=== PATIENT | female | born 1950 | race Caucasian/White ===

== ENCOUNTER 2019-03-02 07:25 | Day surgery (SDC) | payer MEDICARE, OTHER ==
[~2019-03-02 07:25] MED LIST: Lactated Ringers 1,000 ML IV ONE
[2019-03-02] MEDS ORDERED: TETRACAINE 0.5% STERI-UNIT SOL OP ONE ×2 (07:30)
[2019-03-02] MEDS ORDERED: Lactated Ringers 1,000 ML IV SCH (07:30)
[2019-03-02] MEDS ORDERED: Ak-Dilate OPHTHALMIC*** 1.065 ML, Cyclogyl 1% OPHTH SOL 5 ML 1.065 ML, GATIFLOXACIN 0.5... OP ONE ×4 (07:30)
[2019-03-02] MEDS ORDERED: DIPRIVAN 200 MG/20 ML IV ONE (08:57)
[2019-03-02] MEDS ORDERED: BETADINE 5% OPHTHALMIC 30 ML OP ONE (09:00)
[2019-03-02] MEDS ORDERED: Epinephrine Preservative Free 1 MG/ML INTRAOP ONE (09:00)
[2019-03-02] MEDS ORDERED: LIDOCAINE HCL 1% AMPUL 5 ML IJ ONE (09:00)
[2019-03-02] MEDS ORDERED: BSS 500 ML, Fortaz/Tazicef 1 GM** 0.2 G IO ONE ×2 (09:00)
[2019-03-02] MEDS ORDERED: Zofran 4 MG/2 ML VIAL IV PRN (09:30)
[2019-03-02] MEDS ORDERED: ACETAZOLAMIDE 250 MG TABLET PO ONE (09:30)
[2019-03-02 10:07] VITALS: BP 148/78; PULSE 50; O2SAT 98
--- NOTE | 2019-03-03 07:50 | OP ---
DATE/TIME OF OPERATION: 03/02/2019 0858 TIME DICTATED: 1437 PREOPERATIVE DIAGNOSIS: Senile cataract of left eye. POSTOPERATIVE DIAGNOSIS: Senile cataract of left eye. SURGEON: India Salinas MD CAT HOOKER: None. OPERATION: Cataract extraction of left eye with an intraocular lens implant. STANDARD __X__ COMPLEX ANESTHESIA: MAC. ___X__ Monitored anesthesia care in combination with topical and intra-cameral anesthesia (because of the established specific risk of reflux, arrhythmias, or an anxiety attack associated with ocular manipulation as well as difficulty of the heavy equipment field mechanic to manage such potentially catastrophic events while simultaneously attempting to complete the surgical procedure, it was deemed necessary for the patient's safety to have an anesthesiologist or a nurse retread supervisor present during the procedure whenever possible. The anesthesiologist or the nurse retread supervisor was utilized to monitor and regulate the intravenous sedation of the patient, so the patient was cooperative, relaxed, and comfortable). Topical anesthesia using Tetracaine eye drops together with intra cameral anesthesia using Lidocaine 1% MPF. The nurse was utilized to monitor the patient. ANESTHESIA PROVIDER: Gigi Khanna CRNA. COMPLICATIONS: None. BLOOD LOSS: None. INDICATIONS: The patient is undergoing cataract surgery in the hopes of eliminating the visual complaints and difficulty. PROCEDURE: After arriving at the facility's outpatient surgery area, an IV was started; the patient was given 5 mg of p.o. Versed. (If an anesthesia provider was not monitoring the patient) The patient was then given topical anesthetic Tetracaine eye drops. A cotton pellet was soaked into a solution of a combination of Zymaxid 0.5%, Placido-Synephrine 2.5% and Ocufen (other drops might have been substituted referenced in the patient's record). The pellet was inserted by the RN into the lower conjunctival cul-de-sac with a sterile forceps and left for 20 minutes. The pellet was then removed by the RN with a sterile forceps before taking the patient to the operating room. The preoperative area nurse identified the patient and marked the correct eye to be operated on. I identified the correct eye to be operated on and marked it appropriately in the outpatient surgery area. The patient was then taken into the operating room. Tetracaine eye drops were installed again in the correct eye. The eyelids and the lashes and the lid margins were scrubbed with Betadine solution. One drop of the diluted Betadine solution was placed in the conjunctival cul-de-sac for 45 seconds and then was irrigated. A drop of Tetracaine Gel was placed in the conjunctival cul-de-sac. The patient's forehead was taped to secure it during the procedure. The patient was monitored. The patient was then draped in the usual way for this procedure. An eye speculum was used to separate the eyelids. The eye was then fixated and a temporal 2.5 mm incision was made in the clear cornea temporally at the limbus. Through the incision, 0.25 cc of 1% non-preserved lidocaine was injected into the anterior chamber for intracameral anesthesia. The anterior chamber was then filled with viscoelastic. The pupil was small. I felt that it would be safer to mechanically dilate the pupil. A Malyugin ring was used at this point which dilated the pupil. That was removed at the end of the procedure prior to aspiration of the viscoelastic from the anterior chamber and posterior to the intraocular lens implant. The cataract had a great amount of cortical changes. That rendered seeing the anterior capsule difficult for a safe performance of an anterior capsulotomy. I injected an air bubble into the anterior chamber. I then injected 1 ML of vision blue solution into the anterior chamber. The vision blue solution was irrigated from the anterior chamber after 30 seconds. The anterior capsule was stained which facilitated performing the anterior capsulotomy safely. After that was completed, a cystotome was introduced into the anterior chamber and a round anterior capsulotomy was performed. The capsule was removed by a forceps. Hydrodissection was next carried utilizing a 25-gauge cannula and balanced salt solution to delineate the cortical material from the capsule and the nucleus from the cortical material. The nucleus was rotated freely into the capsular bag with no difficulty. The phaco tip of the [employer] Phacoemulsifier was introduced into the anterior chamber and two grooves were made into the nucleus 90 degrees apart. Using two spatulas resulted into the nucleus being fractured into four quadrants. The phaco tip was then used to remove each quadrant of the nucleus. Viscoelastic was used during this process to protect the corneal endothelium. Once the entire nucleus was removed, the phaco tip then was removed and the irrigation tip was introduced into the eye and the cortex was removed. The posterior capsule was polished. It was noticed that there was a tear into the posterior capsule with few vitreous strands into the pupil plan. An anterior vitrectomy was performed. A 17.50 diopter, SN60WF, posterior chamber lens implant, was inspected and found to be grossly normal. The implant was inserted into the implant injector cartridge; Viscoelastic again was introduced into the anterior chamber, which filled the capsular bag. The implant injector's cartridge tip was placed at the limbal wound and the posterior chamber implant was released into the capsular bag and rotated appropriately. The implant was found to be into the capsular bag and it was centered. 0.2 ml of Tri-Moxi was introduced via 27 gauge cannula into the vitreous cavity through the ciliary processes. Viscoelastic was aspirated from the anterior chamber and posterior to the intraocular lens implant from the capsular bag using the irrigating tip. The anterior chamber was irrigated and filled with 5 cc antibiotic solution (500 cc of BSS plus 2 ml of Fortaz 100 mg/ml) ( if patient was not allergic to the medication). The lips of the corneal incision were hydrated using BSS solution. The anterior chamber was checked and found to be water tight. ___X__ One drop each of antibiotic, steroid and NSAID drops (refer to chart for drops used) were placed in the conjunctival cul-de-sac of the operated eye. Patient tolerated the procedure quite well and left the operating room in satisfactory condition. DISCHARGE SUMMARY: The patient was released in stable condition. The patient and those with the patient were given an instruction sheet as of how to care for the eye after surgery as well as counseling on any abnormal laboratory studies by the postoperative RN. The patient was also given an appointment card for follow-up in the office and is to call immediately for any difficulties including but not limited to pain in the eye, decreased vision, discharge from the eye, headache and or fever. DISCHARGE DIAGNOSIS: Pseudophakia of left eye.
== END 2019-03-02 10:10 | disposition home or self-care (01) ==
LOC: SDC 07:25
PROVIDERS: ATTEND Ophthalmology
DX: H25.812 Combined forms of age-related cataract, left eye (principal); H04.129 Dry eye syndrome of unspecified lacrimal gland; I10 Essential (primary) hypertension; J45.909 Unspecified asthma, uncomplicated; Z79.899 Other long term (current) drug therapy
CPT/HCPCS: C1780; J0171; J2704; A9270-GY

== ENCOUNTER 2019-04-06 08:19 | Day surgery (SDC) | payer MEDICARE, OTHER ==
[~2019-04-06 08:19] MED LIST changes: +Ak-Dilate OPHTHALMIC*** 1.065 ML, Cyclogyl 1% OPHTH SOL 5 ML 1.065 ML, GATIFLOXACIN 0.5... OP ONE; +Lactated Ringers 1,000 ML IV SCH; +TETRACAINE 0.5% STERI-UNIT SOL OP ONE
[2019-04-06] MEDS ORDERED: Epinephrine Preservative Free 1 MG/ML INTRAOP ONE (10:00)
[2019-04-06] MEDS ORDERED: BSS 500 ML, Fortaz/Tazicef 1 GM** 0.2 G IO ONE ×2 (10:00)
[2019-04-06] MEDS ORDERED: LIDOCAINE HCL 1% AMPUL 5 ML IJ ONE (10:00)
[2019-04-06] MEDS ORDERED: BETADINE 5% OPHTHALMIC 30 ML OP ONE (10:00)
[2019-04-06] MEDS ORDERED: Zofran 4 MG/2 ML VIAL IV PRN (10:00)
[2019-04-06] MEDS ORDERED: ACETAZOLAMIDE 250 MG TABLET PO ONE (10:00)
[2019-04-06] MEDS ORDERED: DIPRIVAN 200 MG/20 ML IV ONE (10:33)
[2019-04-06 11:38] VITALS: BP 130/54; PULSE 61; O2SAT 98
--- NOTE | 2019-04-07 08:48 | OP ---
DATE/TIME OF OPERATION: 04/06/2019 1030 TIME DICTATED: 1302 PREOPERATIVE DIAGNOSIS: Senile cataract of right eye. POSTOPERATIVE DIAGNOSIS: Senile cataract of right eye. SURGEON: India Salinas MD IT DIRECTOR: None. OPERATION: Cataract extraction of right eye with an intraocular lens implant. STANDARD __X__ COMPLEX ANESTHESIA: MAC. ___X__ Monitored anesthesia care in combination with topical and intra-cameral anesthesia (because of the established specific risk of reflux, arrhythmias, or an anxiety attack associated with ocular manipulation as well as difficulty of the business systems manager to manage such potentially catastrophic events while simultaneously attempting to complete the surgical procedure, it was deemed necessary for the patient's safety to have an anesthesiologist or a nurse manager furniture present during the procedure whenever possible. The anesthesiologist or the nurse manager furniture was utilized to monitor and regulate the intravenous sedation of the patient, so the patient was cooperative, relaxed, and comfortable). Topical anesthesia using Tetracaine eye drops together with intra cameral anesthesia using Lidocaine 1% MPF. The nurse was utilized to monitor the patient. ANESTHESIA PROVIDER: Rosendo Raymond CRNA. COMPLICATIONS: None. BLOOD LOSS: None. INDICATIONS: The patient is undergoing cataract surgery in the hopes of eliminating the visual complaints and difficulty. PROCEDURE: After arriving at the facility's outpatient surgery area, an IV was started; the patient was given 5 mg of p.o. Versed. (If an anesthesia provider was not monitoring the patient) The patient was then given topical anesthetic Tetracaine eye drops. A cotton pellet was soaked into a solution of a combination of Zymaxid 0.5%, Placido-Synephrine 2.5% and Ocufen (other drops might have been substituted referenced in the patient's record). The pellet was inserted by the RN into the lower conjunctival cul-de-sac with a sterile forceps and left for 20 minutes. The pellet was then removed by the RN with a sterile forceps before taking the patient to the operating room. The preoperative area nurse identified the patient and marked the correct eye to be operated on. I identified the correct eye to be operated on and marked it appropriately in the outpatient surgery area. The patient was then taken into the operating room. Tetracaine eye drops were installed again in the correct eye. The eyelids and the lashes and the lid margins were scrubbed with Betadine solution. One drop of the diluted Betadine solution was placed in the conjunctival cul-de-sac for 45 seconds and then was irrigated. A drop of Tetracaine Gel was placed in the conjunctival cul-de-sac. The patient's forehead was taped to secure it during the procedure. The patient was monitored. The patient was then draped in the usual way for this procedure. An eye speculum was used to separate the eyelids. The eye was then fixated and a temporal 2.5 mm incision was made in the clear cornea temporally at the limbus. Through the incision, 0.25 cc of 1% non-preserved lidocaine was injected into the anterior chamber for intracameral anesthesia. The anterior chamber was then filled with viscoelastic. The pupil was small. I felt that it would be safer to mechanically dilate the pupil. A Malyugin ring was used at this point which dilated the pupil. That was removed at the end of the procedure prior to aspiration of the viscoelastic from the anterior chamber and posterior to the intraocular lens implant. The cataract had a great amount of cortical changes. That rendered seeing the anterior capsule difficult for a safe performance of an anterior capsulotomy. I injected an air bubble into the anterior chamber. I then injected 1 ML of vision blue solution into the anterior chamber. The vision blue solution was irrigated from the anterior chamber after 30 seconds. The anterior capsule was stained which facilitated performing the anterior capsulotomy safely. After that was completed, a cystotome was introduced into the anterior chamber and a round anterior capsulotomy was performed. The capsule was removed by a forceps. Hydrodissection was next carried utilizing a 25-gauge cannula and balanced salt solution to delineate the cortical material from the capsule and the nucleus from the cortical material. The nucleus was rotated freely into the capsular bag with no difficulty. The phaco tip of the [employer] Phacoemulsifier was introduced into the anterior chamber and two grooves were made into the nucleus 90 degrees apart. Using two spatulas resulted into the nucleus being fractured into four quadrants. The phaco tip was then used to remove each quadrant of the nucleus. Viscoelastic was used during this process to protect the corneal endothelium. Once the entire nucleus was removed, the phaco tip then was removed and the irrigation tip was introduced into the eye and the cortex was removed. The posterior capsule was polished. It was noticed that there was a tear into the posterior capsule with few vitreous strands into the pupil plan. An anterior vitrectomy was performed. A 16.50 diopter, SN60WF, posterior chamber lens implant, was inspected and found to be grossly normal. The implant was inserted into the implant injector cartridge; Viscoelastic again was introduced into the anterior chamber, which filled the capsular bag. The implant injector's cartridge tip was placed at the limbal wound and the posterior chamber implant was released into the capsular bag and rotated appropriately. The implant was found to be into the capsular bag and it was centered. 0.2 ml of Tri-Moxi was introduced via 27 gauge cannula into the vitreous cavity through the ciliary processes. Viscoelastic was aspirated from the anterior chamber and posterior to the intraocular lens implant from the capsular bag using the irrigating tip. The anterior chamber was irrigated and filled with 5 cc antibiotic solution (500 cc of BSS plus 2 ml of Fortaz 100 mg/ml) ( if patient was not allergic to the medication). The lips of the corneal incision were hydrated using BSS solution. The anterior chamber was checked and found to be water tight. ___X___ One drop each of antibiotic, steroid and NSAID drops (refer to chart for drops used) were placed in the conjunctival cul-de-sac of the operated eye. Patient tolerated the procedure quite well and left the operating room in satisfactory condition. DISCHARGE SUMMARY: The patient was released in stable condition. The patient and those with the patient were given an instruction sheet as of how to care for the eye after surgery as well as counseling on any abnormal laboratory studies by the postoperative RN. The patient was also given an appointment card for follow-up in the office and is to call immediately for any difficulties including but not limited to pain in the eye, decreased vision, discharge from the eye, headache and or fever. DISCHARGE DIAGNOSIS: Pseudophakia of right eye.
== END 2019-04-06 11:45 | disposition home or self-care (01) ==
LOC: SDC 08:19
PROVIDERS: ATTEND Ophthalmology
DX: H25.811 Combined forms of age-related cataract, right eye (principal); I10 Essential (primary) hypertension; J45.909 Unspecified asthma, uncomplicated; Z79.899 Other long term (current) drug therapy
CPT/HCPCS: C1780; J0171; J2704; A9270-GY

== ENCOUNTER 2020-07-02 17:28 | Emergency (ER) | payer MEDICARE ==
[2020-07-02 17:43] VITALS: O2SAT 97
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
[2020-07-02 18:43] VITALS: BP 135/85; PULSE 89
--- NOTE | 2020-07-03 09:13 | XRAY ---
Indication: Pain following fall. Comparison: None 3 view left shoulder demonstrates mild osteopenia and moderate AC degenerative arthropathy. No other bony, articular, or soft tissue abnormalities.
== END 2020-07-02 19:29 ==
LOC: ED 17:28
DX: M25.512 Pain in left shoulder (principal); S49.82XA Other specified injuries of left shoulder and upper arm, initial encounter; W18.39XA Other fall on same level, initial encounter; I10 Essential (primary) hypertension; Z91.81 History of falling; Z79.899 Other long term (current) drug therapy
CPT/HCPCS: 73030; 99283

== ENCOUNTER 2022-07-19 18:59 | Emergency (ER) | payer MEDICARE ==
[2022-07-19] MEDS ORDERED: Adacel Vial IM ONE ×2 (19:50→19:55)
[2022-07-19 20:06] VITALS: BP 111/69; PULSE 70; O2SAT 96
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
--- NOTE | 2022-07-19 21:11 | XRAY ---
Indication: Left supraorbital contusion and headache following fall. Multiple contiguous axial images obtained through the head without contrast. Comparison: None Age appropriate global atrophy and minimal periventricular degenerative micro-ischemia. No acute intracranial hemorrhage, abnormal extra-axial fluid collection, or mass effect. Fourth ventricle is midline without hydrocephalus. Gaffney-white matter differentiation preserved. Bony calvarium intact. Visualized paranasal sinuses and mastoid air cells are clear. Impression: Nonacute senile brain.
--- NOTE | 2022-07-19 21:13 | XRAY ---
Indication: Left supraorbital contusion and headache following fall. Multiple contiguous axial images obtained through the facial bones. Sagittal and coronal reformatted images obtained. Comparison: None Multiple bilateral dental amalgams produces extreme beam artifact limiting these levels. Elsewhere no acute fracture, suspicious bone lesions, or osseous destructive process. Old bilateral nasal bone fractures. Orbits including roof, jaime, and floors intact. Paranasal sinuses and nasal passages are clear. Minimal nasal septal deviation to the right. Visualized cervical spine intact with mild C4-C5 degenerative changes. Visualized noncontrasted soft tissues are unremarkable. Impression: 1. Extreme beam artifact from dental amalgams. 2. Old nasal bone fractures, minimal nasal septal deviation, and mild C4-C5 degenerative changes. 3. Remaining CT facial bones negative
--- NOTE | 2022-07-19 21:15 | XRAY ---
Indication: Pain following fall. Comparison: None 3 view left elbow demonstrates nondisplaced lateral radial head fracture with intra-articular extension and small effusion. No other bony, articular, or soft tissue abnormalities.
[2022-07-19] MEDS ORDERED: NORCO 5/325 MG PO ONE ×2 (21:49→22:20)
[2022-07-19] MEDS ORDERED: NORCO 5/325 MG ONE ×2 (21:54→22:22)
== END 2022-07-19 22:48 | disposition home or self-care (01) ==
LOC: ED 18:59
DX: S52.122A Displaced fracture of head of left radius, initial encounter for closed fracture (principal); S09.90XA Unspecified injury of head, initial encounter; S01.81XA Laceration without foreign body of other part of head, initial encounter; W10.9XXA Fall (on) (from) unspecified stairs and steps, initial encounter; Y92.007 Garden or yard of unspecified non-institutional (private) residence as the place of occurrence of the external cause; R51.9 Headache, unspecified; I10 Essential (primary) hypertension; Z79.891 Long term (current) use of opiate analgesic; Z79.899 Other long term (current) drug therapy
CPT/HCPCS: 12011; 29125; 70450; 70486; 73080; 90471; 90715; 99284; A9270-GY

== ENCOUNTER 2024-06-09 10:03 | Emergency (ER) | payer MEDICARE ==
[2024-06-09 10:19] VITALS: TEMP 97
[2024-06-09] MEDS ORDERED: NEOSYNEPHRINE 0.5% NASAL SPRAY/DROPS ONE (10:25)
[2024-06-09] MEDS ORDERED: TRANEXAMIC ACID 1000 MG/10 ML ONE (10:25)
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
[2024-06-09 12:18] VITALS: BP 142/81; PULSE 81; RESP 20; O2SAT 97
== END 2024-06-09 12:18 | disposition home or self-care (01) ==
LOC: ED 10:03
DX: R04.0 Epistaxis (principal); I10 Essential (primary) hypertension
CPT/HCPCS: 99282; A9270-GY

== ENCOUNTER 2024-07-19 09:48 | Day surgery (SDC) | payer MEDICARE ==
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
[2024-07-19] MEDS: Lactated Ringers 1,000 ML IV SCH (10:00)
[2024-07-19 10:10] VITALS: RESP 16
[2024-07-19] MEDS: Zofran 4 MG/2 ML VIAL IV STA (10:17)
[2024-07-19] MEDS ORDERED: propofoL IV ONE (12:23)
[2024-07-19] MEDS ORDERED: Xylocaine-Mpf 2% 5 Ml Vial ONE (12:23)
[2024-07-19] MEDS ORDERED: Ephedrine Sulfate 50 MG/ML ONE (12:47)
[2024-07-19] MEDS ORDERED: ATROPINE SULFATE 1MG ONE (12:47)
[2024-07-19 13:13] VITALS: PULSE 87; TEMP 98.1; O2SAT 94
[2024-07-19 13:27] VITALS: BP 125/69
--- NOTE | 2024-07-20 12:25 | OP ---
SURGERY DATE/TIME: 07/19/2024 [id number] PREOPERATIVE DIAGNOSES: 1) History of polyps. 2) Family history of colon cancer. 3) Need for followup screening colonoscopy. POSTOPERATIVE DIAGNOSES: 1) Diverticulosis, left colon. 2) Good prep. 3) Withdrawal time approximately 9 minutes. 4) Polyps of the transverse colon and cecum. PROCEDURES: 1) Colonoscopy to the cecum with hot biopsy polypectomy of a less than 2 mm polyp versus hyperplastic lesion in the cecum. 2) Hot snare and hot biopsy piecemeal polypectomy with combination of the hot snare and hot biopsy forceps and removal of 5 mm sessile transverse colon polyp. SURGEON: Rosendo Sanchez MD ANESTHESIA: MAC. ESTIMATED BLOOD LOSS: Minimal. INDICATIONS: Consent was obtained. DESCRIPTION OF PROCEDURE AND FINDINGS: The patient was taken to the endoscopy room. MAC anesthesia was induced. After official time-out and no disagreement with planned procedure, digital rectal exam did not reveal any rectal masses. Videocolonoscope was inserted and passed up through the slightly tortuous sigmoid, descending, transverse, and ascending colon. With external pressure, the scope was able to be passed around into the cecum. Appendiceal orifice and valve well visualized and photo documented. There was a little small 2 mm or less little early polyp versus hyperplastic lesion in the cecum. It was removed with hot biopsy forceps and reverse cautery. Good hemostasis noted. The prep overall was good, a little bit of liquidy stool. The scope was carefully withdrawn over the next 12 minutes. There was a little sessile polyp that was about 4 to 5 mm in size in the transverse colon. This was removed in piecemeal fashion with a combination of the hot snare and the hot biopsy forceps piecemeal polypectomy. Good hemostasis noted. It appeared to be removed. Scope was then continued to be removed slowly and carefully, and again, there was diverticulosis of the left colon. There were no signs of any large polyps, masses, or obstructing lesions. The scope was withdrawn. Patient tolerated the procedure well. Findings discussed with family out in the waiting area.
== END 2024-07-19 13:34 | disposition home or self-care (01) ==
LOC: SDC 09:48
PROVIDERS: ATTEND Surgery
DX: Z12.11 Encounter for screening for malignant neoplasm of colon (principal); Z09 Encounter for follow-up examination after completed treatment for conditions other than malignant neoplasm; Z86.0100 Personal history of colon polyps, unspecified; Z80.0 Family history of malignant neoplasm of digestive organs; K57.30 Diverticulosis of large intestine without perforation or abscess without bleeding; D12.0 Benign neoplasm of cecum; D12.3 Benign neoplasm of transverse colon
CPT/HCPCS: 93005; 99100; J0461; J2405; J2704